=== PATIENT | female | born 1995 | race Caucasian/White ===

== ENCOUNTER 2017-11-10 11:43 | Emergency (ER) | payer OTHER ==
[2017-11-10 13:40] LABS: Absolute Lymphocytes (CBC) 1.8 K/uL (0.7-4.9); Absolute Monocytes 0.5 K/uL (0.1-1.3); Absolute Neutrophil 4.7 K/uL (1.8-8.0); Basophils % 0.8 % (0-1.3); Hematocrit 38.1 % (36.0-45.0); Lymphocytes % 25.2 % (15.3-44.8); MCH 28.2 pg (27.0-35.0); MPV 9.1 fL (7.6-11.3); Monocytes % 6.4 % (3.3-12.3); RBC Red Blood Cell Count 4.43 M/uL (3.86-4.86)
[2017-11-10] MEDS ORDERED: ONDANSETRON 4 MG/2 ML VIAL ONE (13:48)
[2017-11-10] MEDS ORDERED: MORPHINE 4 MG/ML SYR ONE (13:48)
[2017-11-10 14:14] LABS: Albumin 4.3 g/dL (3.4-5.0); Bilirubin Direct 0.1 mg/dL (0-0.2); Bilirubin Total 0.7 mg/dL (0.2-1.0); Potassium 3.8 mmol/L (3.5-5.1); Protein, Total 8.4 g/dL (6.4-8.2)
[2017-11-10 14:35] LABS: Urine Blood 3+ (NEG); Urine Glucose NEGATIVE (NEG); Urine Protein NEGATIVE (NEG); Urine Specific Gravity 1.015 (1.005-1.030)
[2017-11-10 14:52] LABS: Urine Bacteria <20 /HPF (<20); Urine Culture Reflex Order NOT NEEDED; Urine RBC 20-50 /HPF (NONE SEEN)
--- NOTE | 2017-11-10 15:00 | RAD REPORT ---
EXAM DESCRIPTION: CTAbdomen Pelvis W Contrast - 11/10/2017 2:39 pm CLINICAL HISTORY: Abdominal pain. Right lower abdominal pain, IV ONLY COMPARISON: CT ABD PELVIS W CONTRAST dated 11/26/2011 TECHNIQUE: Biphasic CT imaging of the abdomen and pelvis was performed with 100 ml non-ionic IV cont rast. All CT scans are performed using dose optimization technique as appropriate and may include automated exposure control or mA/KV adjustment according to patient size. FINDINGS: The lung bases are clear. The liver, spleen, pancreas, adrenal glands are within normal limits. Punctate bilateral nephrolithia sis is seen without hydronephrosis. No bowel obstruction, free air, intra-abdominal free fluid or abscess. Moderate stool is present in t he colon. The appendix is normal. No evidence of significant lymphadenopathy. No suspicious bony findings. Trace pelvic free fluid. IMPRESSION: Punctate bilateral nephrolithiasis without hydronephrosis. Moderate fecal retention in the colon.
[2017-11-10] MEDS ORDERED: NA CHLORIDE 0.9% 1,000 ML ONE (15:54)
[2017-11-10] MEDS ORDERED: KETOROLAC 30 MG/ML INJ ONE (16:09)
--- NOTE | 2017-11-10 18:00 | RAD REPORT ---
EXAM DESCRIPTION: US - Pelvis Complete - 11/10/2017 5:47 pm CLINICAL HISTORY: pelvic pain Pelvic pain. COMPARISON: PELVIC COMPLETE dated 06/11/2014 FINDINGS: The uterus is normal in size, shape and echotexture. The uterus measures 7.1 x 4.1 x 3.0 c m. The endometrial stripe measures 10 mm, normal. Both ovaries are normal in size, shape and echotexture. The right ovary measures 3.4 x 2.3 x 2.3 cm. The left ovary measures 2.6 x 2.0 x 1.9 cm. No ovarian or parovarian lesions. No adnexal masses. Normal Doppler blood flow was demonstrated to both ovaries. No significant pelvic ascites. IMPRESSION: Unremarkable study.
--- NOTE | 2017-11-10 18:05 | ER ---
Nurse's Notes [facility] Name: Zen Gabriel Age: 22 yrs Sex: Female : 1995 Arrival Date: 11/10/2017 Time: 11:46 Bed 24 Private MD: Van Romoe Diagnosis: Urinary tract infection, site not specified;Constipation Presentation: 11/10 12:09 Presenting complaint: Patient states: Lower abdominal and pelvic pain 10/10 x 3 days. hb Vomit x 1 yesterday. Transition of care: patient was not received from another setting of care. Onset of symptoms was November 08, 2017. Risk Assessment: Do you want to hurt yourself or someone else? Patient reports no desire to harm self or others. Care prior to arrival: None. 12:09 Method Of Arrival: Wheelchair hb 12:09 Acuity: JASSI 3 hb 12:40 Initial Sepsis Screen: Does the patient meet any 2 criteria? No. Patient's initial ed1 sepsis screen is negative. Does the patient have a suspected source of infection? No. Patient's initial sepsis screen is negative. 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 - Social history:: Smoking status: Patient/guardian denies using tobacco. - Ebola Screening: : No symptoms or risks identified at this time. Screenin:57 Abuse screen: Denies threats or abuse. Denies injuries from another. Nutritional ed1 screening: No deficits noted. Tuberculosis screening: No symptoms or risk factors identified. Fall Risk None identified. Assessment: 12:40 Reassessment: mother came to desk states "she needs to lay down", educated that there tw2 is no beds available at this time and as soon as one becomes available she will be brought back to a room. 12:57 General: Appears uncomfortable, Behavior is calm, cooperative. Pain: Complains of pain ed1 in suprapubic area Pain radiates to back and rectum Pain currently is 10 out of 10 on a pain scale. Quality of pain is described as sharp, shooting, stabbing, Pain began "this morning" Is intermittent. Neuro: Level of Consciousness is awake, alert, obeys commands, Oriented to person, place, time, situation. Cardiovascular: Denies chest pain, Heart tones S1 S2 present. Respiratory: Airway is patent Trachea midline Respiratory effort is even, unlabored, Respiratory pattern is regular, symmetrical, Breath sounds are clear bilaterally. GI: Abdomen is flat, Bowel sounds present X 4 quads. Abd is soft X 4 quads Abdomen is tender to palpation in suprapubic area, right lower quadrant and left lower quadrant Reports lower abdominal pain, cramping, nausea, constipation relieved by Miralax Patient currently denies diarrhea, vomiting. : No signs and/or symptoms were reported regarding the genitourinary system. EENT: No signs and/or symptoms were reported regarding the EENT system. Derm: Skin is intact, is healthy with good turgor, Skin is dry, Skin is normal, Skin temperature is warm. Musculoskeletal: Circulation, motion, and sensation intact. Range of motion: intact in all extremities. 13:00 Reassessment: I agree with previous assessment. hb 14:16 Reassessment: Patient appears in no apparent distress at this time. Patient and/or ed1 family updated on plan of care and expected duration. Pain level reassessed. Patient is alert, oriented x 3, equal unlabored respirations, skin warm/dry/pink. Patient states feeling better. Patient states symptoms have improved. 15:04 Reassessment: Patient appears in no apparent distress at this time. Patient and/or ed1 family updated on plan of care and expected duration. Pain level reassessed. Patient is alert, oriented x 3, equal unlabored respirations, skin warm/dry/pink. Patient states feeling better. Patient states symptoms have improved. 16:09 Reassessment: Patient appears in no apparent distress at this time. Patient and/or ed1 family updated on plan of care and expected duration. Pain level reassessed. Patient is alert, oriented x 3, equal unlabored respirations, skin warm/dry/pink. Pt states "My pain is starting to return.". 17:05 Reassessment: Patient appears in no apparent distress at this time. Patient and/or ed1 family updated on plan of care and expected duration. Pain level reassessed. Patient is alert, oriented x 3, equal unlabored respirations, skin warm/dry/pink. Patient states feeling better. Patient states symptoms have improved. 18:17 Reassessment: Patient appears in no apparent distress at this time. Patient and/or ed1 family updated on plan of care and expected duration. Pain level reassessed. Patient is alert, oriented x 3, equal unlabored respirations, skin warm/dry/pink. Patient states feeling better. Patient states symptoms have improved. Vital Signs: 12:11 BP 101 / 54; Pulse 71; Resp 16; Temp 98.2; Pulse Ox 100% on R/A; Pain 10/10; hb 12:57 BP 116 / 65; Pulse 57; Resp 17; Pulse Ox 99% on R/A; Pain 10/10; ed1 13:45 BP 119 / 83 RA Sitting (auto/pedi); Pulse 54; Resp 18 S; Pain 8/10; jp3 15:04 BP 125 / 56; Pulse 45; Resp 16; Pulse Ox 100% on R/A; Pain 5/10; ed1 16:09 BP 107 / 62; Pulse 96; Resp 18; Pulse Ox 100% on R/A; Pain 6/10; ed1 17:05 BP 102 / 65; Pulse 60; Resp 16; Pulse Ox 100% on R/A; Pain 4/10; ed1 18:17 BP 95 / 58; Pulse 66; Resp 17; Pulse Ox 100% on R/A; Pain 2/10; ed1 ED Course: 11:46 Patient arrived in ED. sb2 11:46 Van Romeo MD is Private Physician. sb2 12:11 Triage completed. hb 12:11 Arm band placed on right wrist. hb 12:51 Soraida Velazquez LVN is Primary Nurse. ed1 12:57 Provider at bedside to see patient. ed1 12:57 Patient has correct armband on for positive identification. Placed in gown. Bed in low ed1 position. Call light in reach. Adult w/ patient. Pulse ox on. NIBP on. Warm blanket given. 12:58 [facility] 12:58 Freddy Heller MD is Attending Physician. [facility] 13:10 Missed attempt(s): 22 gauge in right forearm. Bleeding controlled, band aid applied, jp3 catheter tip intact. 13:20 Initial lab(s) drawn, by me, sent to lab. Inserted saline lock: 22 gauge in left jp3 antecubital area, using aseptic technique. Blood collected. 13:31 Pillow given. jp3 13:45 Urine collected: clean catch specimen, clear, concepcion colored. jp3 14:[address] via stretcher. vm2 14:39 CT completed. Patient tolerated procedure well. Patient moved back from CT. vm2 14:39 CT Abd/Pelvis - W/Contrast In Process Unspecified. EDMS 15:21 Note: PT REFUSED VAG U/S- SPOKE WITH TAN AND HE SAID THEY WOULD PHONE SCREENER HER FLUIDS- hr SPOKE WITH THE PATIENT AND TOLD HER TO TELL THE NURSE WHEN HER BLADDER FELT REALLY FULL. HR. 16:55 Basic Metabolic Panel Sent. rv 17:05 Resting quietly. Awaiting: Ultrasound. ed1 17:45 Ultrasound completed. Patient tolerated well. hr 17:45 Pelvis Complete In Process Unspecified. EDMS 18:04 Rory Ambrose MD is Referral Physician. [facility] 18:17 No provider procedures requiring assistance completed. IV discontinued, intact, ed1 bleeding controlled, No redness/swelling at site. Pressure dressing applied. Administered Medications: 13:50 Drug: morphine 4 mg Route: IVP; Site: left antecubital; la1 17:06 Follow up: Response: No adverse reaction; Pain is decreased ed1 13:50 Drug: Zofran 4 mg Route: IVP; Site: left antecubital; la1 17:06 Follow up: Response: No adverse reaction; Nausea is decreased ed1 15:56 Drug: NS 0.9% 1000 ml Route: IV; Rate: 1 bolus; Site: left antecubital; ed1 18:18 Follow up: IV Status: Completed infusion; IV Intake: 1000ml ed1 16:07 Drug: TORadol 30 mg Route: IVP; Site: left antecubital; hb 17:06 Follow up: Response: No adverse reaction; Pain is decreased ed1 Intake: 18:18 IV: 1000ml; Total: 1000ml. ed1 Outcome: 18:04 Discharge ordered by . jmm 18:17 Discharged to home ambulatory, with family. ed1 18:17 Condition: good 18:17 Discharge instructions given to patient, Instructed on discharge instructions, follow up and referral plans. medication usage, Demonstrated understanding of instructions, follow-up care, medications, Prescriptions given X 2. 18:19 Patient left the ED. ed1 Signatures: Dispatcher [employer] EDMS Tan Kelly PA PA jmm Rod, Haley hr Riggs, Soraida, ACCOUNTS PAYABLE MANAGER ACCOUNTS PAYABLE MANAGER ed1 Lalo Low RN RN la1 Galina Viveros, RN RN Chapis Boucher RN RN 2 Brittany Schilling 2 Ginny Whitlock 2 Bentley Bar, RN RN rv Mango Reilly jp3
--- NOTE | 2017-11-10 18:05 | EDPHYS ---
Physician Documentation [facility] Name: Zen Gabriel Age: 22 yrs Sex: Female : 1995 Arrival Date: 11/10/2017 Time: 11:46 Bed 24 Private MD: Van Romeo ED Physician Freddy Heller HPI: 11/10 13:07 This 22 yrs old Female presents to ER via Wheelchair [facility] of [facility] Ab[facility]. 13:07 The patient presents with abdominal pain. Onset: The symptoms/episode began/occurred [facility] gradually, 2 day(s) ago. The symptoms radiate to suprapubic area. Associated signs and symptoms: Pertinent positives: vomiting. 13:07 This is a 22 year old female with a history of ovarian cysts, asthma that [facility] with lower abdominal and pelvic pain. Patient denies vaginal bleeding or discharge. Patient states she is constipated and has had painful bowel movements. Patient states having an episodes of vomiting today. Patient states that symptoms are worse on the right. . 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 - Social history:: Smoking status: Patient/guardian denies using tobacco. - Ebola Screening: : No symptoms or risks identified at this time. ROS: 13:07 Constitutional: Negative for fever, chills, and weight loss, Cardiovascular: Negative [facility] for chest pain, palpitations, and edema, Respiratory: Negative for shortness of breath, cough, wheezing, and pleuritic chest pain. 13:07 Abdomen/GI: Positive for abdominal pain, vomiting, constipation. 13:07 : Positive for pelvic pain. 13:07 All other systems are negative. Exam: 13:07 Head/Face: atraumatic. Chest/axilla: Normal chest wall appearance and motion. [facility] Cardiovascular: Regular rate and rhythm. No edema appreciated Respiratory: Normal respirations, no respiratory distress appreciated 13:07 Constitutional: The patient appears alert, awake, uncomfortable. 13:07 Abdomen/GI: Inspection: abdomen appears normal, Bowel sounds: normal, Palpation: soft, mild abdominal tenderness, in the right lower quadrant. 13:07 Abdomen/GI: Palpation: soft, mild abdominal tenderness. 13:07 Back: ROM is normal. 13:07 Musculoskeletal/extremity: ROM: intact in all extremities. 13:07 Skin: Appearance: Color: normal in color. 13:07 Neuro: Orientation: is normal, Mentation: is normal, Memory: is normal. 13:07 Psych: Behavior/mood is pleasant, cooperative. Vital Signs: 12:11 BP 101 / 54; Pulse 71; Resp 16; Temp 98.2; Pulse Ox 100% on R/A; Pain 10/10; hb 12:57 BP 116 / 65; Pulse 57; Resp 17; Pulse Ox 99% on R/A; Pain 10/10; ed1 13:45 BP 119 / 83 RA Sitting (auto/pedi); Pulse 54; Resp 18 S; Pain 8/10; jp3 15:04 BP 125 / 56; Pulse 45; Resp 16; Pulse Ox 100% on R/A; Pain 5/10; ed1 16:09 BP 107 / 62; Pulse 96; Resp 18; Pulse Ox 100% on R/A; Pain 6/10; ed1 17:05 BP 102 / 65; Pulse 60; Resp 16; Pulse Ox 100% on R/A; Pain 4/10; ed1 18:17 BP 95 / 58; Pulse 66; Resp 17; Pulse Ox 100% on R/A; Pain 2/10; ed1 MDM: 13:05 Patient medically screened. [facility] 17:51 Data reviewed: vital signs, nurses notes. Counseling: I had a detailed discussion with best the patient and/or guardian regarding: the historical points, exam findings, and any diagnostic results supporting the discharge/admit diagnosis, the need for outpatient follow up, to return to the emergency department if symptoms worsen or persist or if there are any questions or concerns that arise at home. 11/10 13:06 Order name: Amylase, Serum; Complete Time: 14:34 [facility] 11/10 13:06 Order name: Basic Metabolic Panel [facility] 11/10 13:06 Order name: CBC with Diff; Complete Time: 13:43 [facility] 11/10 13:06 Order name: Creatinine for Radiology; Complete Time: 14:02 [facility] 11/10 13:06 Order name: Hepatic Function; Complete Time: 14:34 [facility] 11/10 13:06 Order name: Lipase; Complete Time: 14:34 [facility] 11/10 13:06 Order name: Urine Microscopic Only; Complete Time: 15:02 [facility] 11/10 13:06 Order name: CT Abd/Pelvis - W/Contrast; Complete Time: 15:02 [facility] 11/10 13:07 Order name: Basic Metabolic Panel; Complete Time: 14:34 [facility] 11/10 14:18 Order name: Urine Dipstick--Ancillary (enter results); Complete Time: 14:38 bd 11/10 14:18 Order name: Urine --Ancillary (enter results); Complete Time: 14:38 11/10 16:43 Order name: Pelvis Complete; Complete Time: 18:03 [facility] 11/10 13:06 Order name: Urine Test (obtain specimen); Complete Time: 13:50 [facility] 11/10 13:06 Order name: IV Saline Lock; Complete Time: 13:44 [facility] 11/10 13:06 Order name: Labs collected and sent; Complete Time: 13:44 [facility] 11/10 13:06 Order name: Urine Dipstick-Ancillary (obtain specimen); Complete Time: 13:50 [facility] Administered Medications: 13:50 Drug: morphine 4 mg Route: IVP; Site: left antecubital; la1 17:06 Follow up: Response: No adverse reaction; Pain is decreased ed1 13:50 Drug: Zofran 4 mg Route: IVP; Site: left antecubital; la1 17:06 Follow up: Response: No adverse reaction; Nausea is decreased ed1 15:56 Drug: NS 0.9% 1000 ml Route: IV; Rate: 1 bolus; Site: left antecubital; ed1 18:18 Follow up: IV Status: Completed infusion; IV Intake: 1000ml ed1 16:07 Drug: TORadol 30 mg Route: IVP; Site: left antecubital; hb 17:06 Follow up: Response: No adverse reaction; Pain is decreased ed1 Disposition: 11/10/17 18:04 Discharged to Home. Impression: Urinary tract infection, site not specified, Constipation. - Condition is Stable. - Discharge Instructions: Urinary Tract Infection, Adult. - Prescriptions for Cephalexin 500 mg Oral Capsule - take 1 capsule by ORAL route every 12 hours for 10 days; 20 capsule. Colace 100 mg Oral Tablet - take 1 tablet by ORAL route every 12 hours; 14 tablet. - Medication Reconciliation Form, Thank You Letter, Antibiotic Education, Prescription Opioid Use form. - Follow up: Rory Ambrose MD; When: As needed; Reason: Recheck today's complaints, Continuance of care, Re-evaluation by your physician. Addendum: 11/12/2017 18:45 Co-signature as Attending Physician, Freddy Heller MD. g s Signatures: Dispatcher [employer] EDAK Gabriel Kelly PA PA raym Soraida Velazquez, DOCTOR OF AUDIOLOGY DOCTOR OF AUDIOLOGY ed1 Lalo Low RN RN la1 Galina Viveros RN RN hb Freddy Heller MD MD Corrections: (The following items were deleted from the chart) 11/10 15:14 15:03 Pelvis Complete+US.RAD.BRZ ordered. [facility] EDAK 16:43 15:14 Transvaginal Study Probe ordered. [facility] EDMS 18:19 18:04 11/10/2017 18:04 Discharged to Home. Impression: Urinary tract infection, site ed1 not specified; Constipation. Condition is Stable. Forms are Medication Reconciliation Form, Thank You Letter, Antibiotic Education, Prescription Opioid Use. Follow up: Rory Ambrose; When: As needed; Reason: Recheck today's complaints, Continuance of care, Re-evaluation by your physician. best
[2017-11-10 18:27] VITALS: TEMP 98.2
[2017-11-10 18:30] VITALS: O2SAT 100
[2017-11-10 18:34] VITALS: BP 95/58
== END 2017-11-10 18:19 | disposition home or self-care (01) ==
LOC: ER 11:43
DX: N39.0 Urinary tract infection, site not specified (principal); K59.00 Constipation, unspecified; J45.909 Unspecified asthma, uncomplicated; Z88.8 Allergy status to other drugs, medicaments and biological substances
CPT/HCPCS: 36415; 74177; 76856; 80048; 80076; 81003; 81015; 81025; 82150; 83690; 85025; 96361; 96374; 96375; 99284; J2405; J7030; Q9967

== ENCOUNTER 2018-07-16 06:47 | Emergency (ER) | payer OTHER ==
[2018-07-16] MEDS ORDERED: IBUPROFEN 400 MG TAB ONE (07:39)
[2018-07-16] MEDS ORDERED: ONDANSETRON 4 MG (ODT) TAB ONE (07:39)
--- NOTE | 2018-07-16 07:57 | EDPHYS ---
Physician Documentation [facility] Name: Zen Gabriel Age: 22 yrs Sex: Female : 1995 Arrival Date: 07/16/2018 Time: 06:50 Bed 16 Private MD: Van Romeo ED Physician Estuardo Gupta HPI: 07/16 07:20 This 22 yrs old Female presents to ER via Ambulatory with complaints of Sore cp Throat, Fever, Headache. 07:20 The patient presents with sore throat. cp 07:20 The patient describes throat pain as constant. Onset: The symptoms/episode cp began/occurred 2 day(s) ago. Severity of symptoms: in the emergency department the symptoms are unchanged, despite home interventions. Modifying factors: the symptoms are aggravated by swallowing. Associated signs and symptoms: Pertinent positives: fever, headache, Pertinent negatives cough, diarrhea, dysphagia, vomiting. 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 - Social history:: Smoking status: Patient/guardian denies using tobacco. - Ebola Screening: : No symptoms or risks identified at this time. ROS: 07:25 Constitutional: Negative for body aches, chills, fever, poor PO intake. cp 07:25 Eyes: Negative for injury, pain, redness, and discharge. cp 07:25 ENT: Positive for sore throat, Negative for drainage from ear(s), ear pain, difficulty swallowing, difficulty handling secretions. 07:25 Neck: Negative for pain with movement, pain at rest, stiffness. 07:25 Respiratory: Negative for cough, wheezing. 07:25 Abdomen/GI: Positive for nausea, Negative for vomiting, diarrhea, constipation. 07:25 Skin: Negative for rash. 07:25 Neuro: Positive for headache, Negative for altered mental status, weakness. 07:25 All other systems are negative. Exam: 07:30 Constitutional: The patient appears in no acute distress, alert, awake, non-toxic, well cp developed, well nourished. 07:30 Head/Face: Normocephalic, atraumatic. cp 07:30 Eyes: Periorbital structures: appear normal, Conjunctiva: normal, no exudate, no cp injection, Lids and lashes: appear normal, bilaterally. 07:30 ENT: External ear(s): are unremarkable, Ear canal(s): are normal, clear, TM's: are normal, no evidence of bulging, no erythema, Nose: is normal, Mouth: Lips: moist, Oral mucosa: moist, Posterior pharynx: Airway: no evidence of obstruction, patent, Tonsils: with erythema, with exudate, mild enlargement, Uvula: midline, erythema, that is moderate, Voice: is hoarse. 07:30 Neck: ROM/movement: is normal, is supple, no range of motions limitations, no meningismus, no nuchal rigidity. 07:30 Chest/axilla: Inspection: normal, Palpation: is normal, no crepitus, no tenderness. 07:30 Cardiovascular: Rate: normal, Rhythm: regular. 07:30 Respiratory: the patient does not display signs of respiratory distress, Respirations: normal, no use of accessory muscles, no retractions, no splinting, no tachypnea, labored breathing, is not present, Breath sounds: are clear throughout, no decreased breath sounds, no stridor, no wheezing. 07:30 Abdomen/GI: Inspection: abdomen appears normal, Palpation: abdomen is soft and non-tender, in all quadrants. 07:30 Neuro: Orientation: to person, place \T\ time. Mentation: is normal. Vital Signs: 07:10 BP 112 / 70; Pulse 74; Resp 16; Temp 98.4; Pulse Ox 98% ; Pain 10/10; hb 08:00 BP 115 / 71; Pulse 74; Resp 15; Pulse Ox 100% on R/A; rb1 08:09 BP 109 / 63; Pulse 67; Resp 15; Pulse Ox 99% ; rb1 MDM: 07:08 Patient medically screened. cp 07:30 Differential diagnosis: epiglottitis, group A strep tonsillitis, el's angina, cp mononucleosis, peritonsillar abscess retropharyngeal abcess tonsillitis, uvulitis, viral syndrome. 07:55 Data reviewed: vital signs, nurses notes, lab test result(s). cp 07:55 Counseling: I had a detailed discussion with the patient and/or guardian regarding: the cp historical points, exam findings, and any diagnostic results supporting the discharge/admit diagnosis, lab results, to return to the emergency department if symptoms worsen or persist or if there are any questions or concerns that arise at home. 07:55 Response to treatment: the patient's symptoms have mildly improved after treatment, and cp as a result, I will discharge patient. 07/16 07:18 Order name: Strep cp 07/16 07:44 Order name: Throat Culture EDAR Administered Medications: 07:31 Drug: Ibuprofen 800 mg Route: PO; rb1 08:00 Follow up: Response: No adverse reaction; Pain is decreased; pain 11/04 rb1 07:32 Drug: Zofran 4 mg Route: PO; rb1 08:00 Follow up: Response: No adverse reaction; Nausea is decreased rb1 Disposition: 07/17 08:00 Co-signature as Attending Physician, Estuardo Gupta MD I agree with the assessment and [facility] plan of care. Disposition: 07/16/18 07:56 Discharged to Home. Impression: Acute tonsillitis, unspecified. - Condition is Stable. - Discharge Instructions: Tonsillitis. - Prescriptions for Ibuprofen 600 mg Oral Tablet - take 1 tablet by ORAL route every 6 hours As needed take with food; 30 tablet. Keflex 500 mg Oral Capsule - take 1 capsule by ORAL route every 8 hours for 10 days; 30 capsule. - Medication Reconciliation Form, Thank You Letter, Antibiotic Education, Prescription Opioid Use, School release form form. - Follow up: Private Physician; When: 48 Hours; Reason: Recheck today's complaints. - Problem is new. - Symptoms have improved. Signatures: Dispatcher [employer] EDAR Estuardo Gupta MD MD cha Page, Corey, PA PA cp Barber, Rebecca, RN RN rb1 Galina Viveros RN RN Corrections: (The following items were deleted from the chart) 07/16 08:09 07:56 07/16/2018 07:56 Discharged to Home. Impression: Acute tonsillitis, unspecified. rb1 Condition is Stable. Forms are Medication Reconciliation Form, Thank You Letter, Antibiotic Education, Prescription Opioid Use. Follow up: Private Physician; When: 48 Hours; Reason: Recheck today's complaints. Problem is new. Symptoms have improved. cp
--- NOTE | 2018-07-16 07:57 | ER ---
Nurse's Notes [facility] Name: Zen Gabriel Age: 22 yrs Sex: Female : 1995 Arrival Date: 07/16/2018 Time: 06:50 Bed 16 Private MD: Van Romeo Diagnosis: Acute tonsillitis, unspecified Presentation: 07/16 07:11 Presenting complaint: Sore throat, headache, nausea, and fever x 2-3 days. Transition hb of care: patient was not received from another setting of care. Onset of symptoms was July 16, 2018. Risk Assessment: Do you want to hurt yourself or someone else? Patient reports no desire to harm self or others. Initial Sepsis Screen: Does the patient meet any 2 criteria? No. Patient's initial sepsis screen is negative. Does the patient have a suspected source of infection? No. Patient's initial sepsis screen is negative. Care prior to arrival: Medication(s) given: Tylenol, at midnight. 07:11 Method Of Arrival: Ambulatory hb 07:11 Acuity: JASSI 4 hb PHD INTERN: 07:10 LMP N/A - Depo-provera hb Historical: - Allergies: 07:12 meperidine HCl (Vomiting); hb - Home Meds: 07:12 ProAir HFA inhalation [Active]; Strattera Oral [Active]; Trilogy inhaler [Active]; hb - PMHx: 07:12 Asthma; Ovarian cysts; hb - Immunization history:: Adult Immunizations up to date. - Social history:: Smoking status: Patient/guardian denies using tobacco. - Ebola Screening: : No symptoms or risks identified at this time. Screenin:07 Abuse screen: Denies threats or abuse. Nutritional screening: No deficits noted. rb1 Tuberculosis screening: No symptoms or risk factors identified. Fall Risk None identified. Assessment: 07:07 General: Appears in no apparent distress. comfortable, slender, Behavior is calm, rb1 cooperative, Reports fever for. Pain: Complains of pain in sore throat Pain currently is 8 out of 10 on a pain scale. Pain began 2-3 days ago. Neuro: Level of Consciousness is awake, alert, obeys commands, Oriented to person, place, time, situation. Neuro: Reports headache. Cardiovascular: Capillary refill < 3 seconds is brisk in bilateral fingers. Respiratory: Airway is patent Respiratory effort is even, unlabored, Respiratory pattern is regular, symmetrical, Breath sounds are clear bilaterally. GI: Reports nausea. : No signs and/or symptoms were reported regarding the genitourinary system. EENT: Throat is reddened. Derm: Skin is pink, warm \T\ dry. Musculoskeletal: Range of motion: intact in all extremities. 08:00 Reassessment: Patient appears in no apparent distress at this time. No changes from rb1 previously documented assessment. Mother at bedside. Vital Signs: 07:10 BP 112 / 70; Pulse 74; Resp 16; Temp 98.4; Pulse Ox 98% ; Pain 10/10; hb 08:00 BP 115 / 71; Pulse 74; Resp 15; Pulse Ox 100% on R/A; rb1 08:09 BP 109 / 63; Pulse 67; Resp 15; Pulse Ox 99% ; rb1 ED Course: 06:50 Patient arrived in ED. es 06:50 Van Romeo MD is Private Physician. es 07:07 Patient has correct armband on for positive identification. Bed in low position. Call rb1 light in reach. Side rails up X 1. Pulse ox on. NIBP on. 07:08 Estuardo Galloway PA is PHCP. cp 07:08 Freddy Heller MD is Attending Physician. cp 07:09 Estuardo Gupta MD is Attending Physician. cp 07:12 Triage completed. hb 07:12 Arm band placed on. hb 07:25 Marta Joyner, RN is Primary Nurse. rb1 07:25 Strep Sent. rb1 08:09 No provider procedures requiring assistance completed. Patient did not have IV access rb1 during this emergency room visit. Administered Medications: 07:31 Drug: Ibuprofen 800 mg Route: PO; rb1 08:00 Follow up: Response: No adverse reaction; Pain is decreased; pain 8/10 rb1 07:32 Drug: Zofran 4 mg Route: PO; rb1 08:00 Follow up: Response: No adverse reaction; Nausea is decreased rb1 Intake: Outcome: 07:56 Discharge ordered by . cp 08:09 Patient left the ED. rb1 08:09 Discharged to home ambulatory, with family. rb1 08:09 Condition: stable 08:09 Discharge instructions given to patient, Instructed on discharge instructions, follow up and referral plans. medication usage, Demonstrated understanding of instructions, follow-up care, medications, Prescriptions given X 2. Signatures: Petra Patel Corey, PA PA cp Barber, Rebecca RN RN [facility] Galina Viveros RN RN
[2018-07-16 08:25] VITALS: BP 112/70; TEMP 98.4; O2SAT 98
== END 2018-07-16 08:09 | disposition home or self-care (01) ==
LOC: ER 06:47
DX: J03.90 Acute tonsillitis, unspecified (principal); J45.909 Unspecified asthma, uncomplicated
CPT/HCPCS: 87070; 87081; 99284

== ENCOUNTER 2020-04-17 14:56 | Emergency (ER) | payer BC, OTHER, SELFPAY ==
--- OUTSIDE RECORDS SUMMARY | 2020-04-17 14:58 | XMS REPORT | Clinical Summary ---
:1995 Author Organization [facility] Address [address] [place] [address] Care Team Providers Name Role Phone MD Agueda Primary Care Provider Allergies Active Allergy Reactions Severity Noted Date Comments Meperidine GI Intolerance 02/11/2020 Medications Medication Sig Dispensed Refills Start Date End Date Status atomoxetine 0 11/29/2019 Active (STRATTERA) 40 MG capsule FLUoxetine (PROzac) 0 01/02/2020 Active 20 MG capsule meloxicam (Mobic) 15 Take 1 tablet 30 tablet 0 02/11/2020 1208/2019 mg tablet (15 mg total) by mouth daily for 30 days. Active Problems Problem Noted Date Bilateral snapping hips 02/11/2020 Encounters Date Type Specialty Care Team Description 02/11/2020 Office Visit Orthopedic Surgery Art Pacheco MD Parvez ateral snapping hips (Primary Dx) 02/11/2020 Travel 02/08/2020 Travel after 04/17/2019 Social History Tobacco Use Types Packs/Day Years Used Date Never Assessed Sex Assigned at Date Recorded Not on file Job Start Date Occupation Industry Not on file Not on file Not on file Last Filed Vital Signs Vital Sign Reading Time Taken Comments Blood Pressure - - Pulse - - Temperature - - Respiratory Rate - - Oxygen Saturation - - Inhaled Oxygen Concentration - - Weight 52.6 kg (116 lb) 02/11/2020 1:36 PM [employer] Height 156.2 cm (5' 1.5") 02/11/2020 1:36 PM [employer] Body Mass Index 21.56 02/11/2020 1:36 PM [employer] Plan of Treatment Health Maintenance Due Date Last Done Comments CHLAMYDIA SCREENING 2011 COVID-19 VACCINE (1 of 2) 2011 CERVICAL CANCER SCREENING 08/23/2016 INFLUENZA VACCINE 10/27/2019 Procedures Procedure Name Priority Date/Time Associated Diagnosis Comme nts XR HIPS BILATERAL Routine 02/11/2020 1:46 PM Bilateral hip pa in Results for this AP LATERAL W AP [employer] procedure ar e in PELVIS the results section. after 04/17/2019 Results XR Hips Bilateral Ap Lateral W Ap Pelvis (02/11/2020 1:46 PM [employer]) Specimen Narrative Performed At This result has an attachment that is no t available. AP pelvis and lateral x-ray of both hips reveal no significant bony [facility] abnormalities. There may be some dysplasia in both h ips. Performing Organization Address City/State/ZIP Code Phon e Number [facility] [address] [place] [address] after 04/17/2019 [phone] [id number] (Work) Advance Directives For more information, please contact: [phone] Type Date Recorded Patient Boom Supervisor Explanati on Advance Directives, Living Will and Medical Power of Carbon Accountant
--- OUTSIDE RECORDS SUMMARY | 2020-04-17 14:59 | XMS REPORT | Continuity of Care Document ---
:1995 Author Organization [facility] t Address [address] [place] [address] Care Team Providers Name Role Phone Agueda BROWER Primary Care Physician Kristy Ambrocio MD Attending Clinician Payers Payer Name Policy Type Policy Effective Date Expiration Date Sour ce Number BCBSTRS [id number] 2019 [place] [employer] 00:00:00 [employer] PR[employer] /HMO BLUE ESSENTIALSxxxxxx [id number] 2019-P resentHMO Problems Condition Condition Condition Status Onset Resolution Last Treating Co mments Source Name Details Category Date Date Treatment Clinician Date Bilateral Bilateral Disease Active 2019-03 [place] kv[place]n snapping snapping 1-16 [facility] i hips hips 00:00: st 00 Allergies, Adverse Reactions, Alerts Allergy Allergy Status Severity Reaction(s) Onset Inactive Treating Comm ents Source Name Type Date Date Clinician Meperidi Propensi Active GI 2019-03 [place] ty to Intolerance 1-16 Metho di adverse 00:00: st reaction 00 s to drug Social History Social Habit Start Date Stop Date Quantity Comments Source Sex Assigned At [facility] Medications Ordered Filled Start Stop Current Ordering Indication Dosage Frequency Signature Comments Components Source Medication Medication Date Date Medication? Clinician (SIG) Name Name meloxicam 2019-03 2020- No 15mg QD Take 1 [place] (Mobic) 15 1-16 12-16 tablet (15 Me thodi mg tablet 00:00: 23:59 mg total) st 00 :00 by mouth daily for 30 days. FLUoxetine 2019-03 Yes [place] (PROzac) 20 0-07 [facility] MG capsule 00:00: st 00 atomoxetine Yes [place] (STRATTERA) 9-03 [facility] 40 MG 00:00: st capsule 00 Vital Signs Vital Name Observation Time Observation Value Comments Source Body height 2020-02-11 13:36:00 156.2 cm Sabino Knight Body weight 2020-02-11 13:36:00 52.617 kg Sabino Knight BMI 2020-02-11 13:36:00 21.56 kg/m2 Sabino Knight Procedures Procedure Date / Time Performed Performing Clinician Sourc e XR HIPS BILATERAL AP 2020-02-11 13:46:41 Art Ambrocio LATERAL W AP PELVIS Plan of Care Planned Activity Planned Date Details Comments Source Future Scheduled 2019-10-27 INFLUENZA VACCINE [place] [facility] 00:00:00 [code = INFLUENZA VACCINE] Future Scheduled 2016-08-23 Screening for Sabino [facility] Test 00:00:00 malignant neoplasm of cervix (procedure) [code = 619670117] Future Scheduled 2011 CHLAMYDIA SCREENING [place] [facility] 00:00:00 [code = CHLAMYDIA SCREENING] Future Scheduled 2011 COVID-19 VACCINE (1 [place] [facility] Test 00:00:00 of 2) [code = COVID-19 VACCINE (1 of 2)] Encounters Start End Encounter Admission Attending Care Care Encounter Source Date/Time Date/Time Type Type Clinicians Facility Department ID 2020-02-11 2020-02-11 Outpatient ART AMBROCIO [facility] [id number] [place] 00:00:00 00:00:[address] 2020-02-11 2020-02-11 Outpatient ART AMBROCIO [facility] [id number] [place] 00:00:00 00:00:[address] Results This patient has no known results.
[2020-04-17 19:01] LABS: Basophils % 0.8 % (0-1.3); Hematocrit 40.2 % (36.0-45.0); Lymphocytes % 39.2 % (15.3-44.8); MPV 9.1 fL (7.6-11.3); RBC Red Blood Cell Count 4.62 M/uL (3.86-4.86)
[2020-04-17 19:11] LABS: ALT/SGPT 21 U/L (12-78); AST/SGOT 18 U/L (15-37); Albumin 4.4 g/dL (3.4-5.0); Alkaline Phosphatase 70 U/L (45-117); BUN Blood Urea Nitrogen 10 mg/dL (7-18); Bicarbonate 27 mmol/L (21-32); Bilirubin Direct < 0.1 mg/dL (0-0.2); Bilirubin Total 0.3 mg/dL (0.2-1.0); Glucose Level 89 mg/dL (74-106); Lipase 224 U/L (73-393); Potassium 3.8 mmol/L (3.5-5.1); Protein, Total 7.7 g/dL (6.4-8.2); Sodium Level 143 mmol/L (136-145)
[2020-04-17] MEDS ORDERED: MORPHINE 4 MG/ML SYR ONE (19:30)
[2020-04-17] MEDS ORDERED: ONDANSETRON 4 MG/2 ML VIAL ONE (19:30)
[2020-04-17 20:26] LABS: Urine Blood NEGATIVE (NEG); Urine Glucose NEGATIVE (NEG); Urine Protein NEGATIVE (NEG); Urine Specific Gravity 1.025 (1.005-1.030)
--- NOTE | 2020-04-17 20:34 | RAD REPORT ---
EXAM DESCRIPTION: CTAbdomen Pelvis W Contrast - 04/17/2020 8:21 pm CLINICAL HISTORY: Abdominal pain. ABD PAIN COMPARISON: Abdomen Pelvis W Contrast dated 11/10/2017 TECHNIQUE: Biphasic CT imaging of the abdomen and pelvis was performed with 100 ml non-ionic IV cont rast. All CT scans are performed using dose optimization technique as appropriate and may include automated exposure control or mA/KV adjustment according to patient size. FINDINGS: The lung bases are clear. The liver, spleen, pancreas, adrenal glands and kidneys are within normal limits. No bowel obstruction, free air, free fluid or abscess. The appendix is not identified as a discrete structure, however, no secondary findings of appendicitis are identified. No evidence of significan t lymphadenopathy. No suspicious bony findings. IMPRESSION: No acute intra-abdominal or pelvic finding.
--- NOTE | 2020-04-17 21:15 | ER ---
Nurse's Notes [facility] Name: Zen Gabriel Age: 24 yrs Sex: Female : 1995 Arrival Date: 04/17/2020 Time: 15:03 Bed 7 Private MD: Van Romeo Diagnosis: Abdominal tenderness Presentation: 04/17 15:13 Chief complaint: Patient states: Right sided abd pain for 1 month. Pain more severe for ll1 2-3 days. + nausea off/on for 1 week. Diarrhea for 1 week. Coronavirus screen: Client denies travel out of the [place] in the last 14 days. At this time, the client does not indicate any symptoms associated with coronavirus-19. Ebola Screen: Patient denies travel to an Ebola-affected area in the 21 days before illness onset. Initial Sepsis Screen: Does the patient meet any 2 criteria? No. Patient's initial sepsis screen is negative. Does the patient have a suspected source of infection? Yes: Acute abdominal pain. Risk Assessment: Do you want to hurt yourself or someone else? Patient reports no desire to harm self or others. Onset of symptoms was March 16, 2020. 15:13 Method Of Arrival: Ambulatory ll1 15:13 Acuity: JASSI 3 ll1 Historical: - Allergies: 15:15 meperidine HCl (Vomiting); ll1 - PMHx: 15:15 Asthma; Ovarian cysts; Endometrosis; ll1 - PSHx: 15:15 None; ll1 - Immunization history:: Flu vaccine is up to date. - Social history:: Smoking status: Patient denies any tobacco usage or history of. - Family history:: not pertinent. Screenin:27 Abuse screen: Denies threats or abuse. Nutritional screening: No deficits noted. ea Tuberculosis screening: No symptoms or risk factors identified. Fall Risk IV access (20 points). Assessment: 19:27 General: Appears uncomfortable, Behavior is appropriate for age. Pain: Complains of ea pain in right lower quadrant. Neuro: Level of Consciousness is awake, alert, obeys commands, Oriented to person, place, time. Cardiovascular: Patient's skin is warm and dry. Respiratory: Airway is patent Respiratory effort is even, unlabored, Respiratory pattern is regular, symmetrical. GI: Bowel sounds present X 4 quads. Abd is soft and non tender X 4 quads. Derm: Skin is pink, warm \T\ dry. 20:15 Reassessment: Patient and/or family updated on plan of care and expected duration. Pain ea level reassessed. Patient is alert, oriented x 3, equal unlabored respirations, skin warm/dry/pink. Pt taken to CT. 20:30 Reassessment: Patient and/or family updated on plan of care and expected duration. Pain ea level reassessed. Patient is alert, oriented x 3, equal unlabored respirations, skin warm/dry/pink. Returned from CT. 21:23 Reassessment: Patient denies pain at this time. Patient states feeling better. Patient mg2 states symptoms have improved. Vital Signs: 15:13 BP 123 / 72; Pulse 69; Resp 16; Temp 98.9; Pulse Ox 100% ; Weight 51.71 kg; Height 5 ll1 ft. 1 in. (154.94 cm); Pain 8/10; 21:12 BP 110 / 75; Pulse 65; Resp 18; Pulse Ox 99% on R/A; ea 21:23 BP 112 / 78; Pulse 80; Resp 18; Temp 98; Pulse Ox 100% on R/A; Pain 0/10; mg2 15:13 Body Mass Index 21.54 (51.71 kg, 154.94 cm) ll1 ED Course: 15:03 Patient arrived in ED. am4 15:03 Van Romeo MD is Private Physician. am4 15:15 Triage completed. ll1 15:15 Arm band placed on. ll1 17:52 Rayray Washburn MD is Attending Physician. tw4 17:59 Cande Shaver RN is Primary Nurse. ph 18:38 Missed attempt(s): 22 gauge in left forearm. Bleeding controlled, band aid applied, dh3 catheter tip intact. 18:41 Initial lab(s) drawn, by md, sent to lab. Inserted saline lock: 22 gauge in right dh3 antecubital area, using aseptic technique. Blood collected. 19:17 Attending Physician role handed off by Rayray Washburn MD paige 19:17 Estuardo Gupta MD is Attending Physician. paige 19:23 Primary Nurse role handed off by Cande Shaver RN [facility] 19:26 Mary Ann Hester RN is Primary Nurse. ea 19:27 Patient has correct armband on for positive identification. Bed in low position. Call ea light in reach. Side rails up X2. 21:14 Van Romeo MD is Referral Physician. paige 21:14 Ramon Cortés MD is Referral Physician. paige 21:14 No provider procedures requiring assistance completed. mg2 21:23 IV discontinued, intact, bleeding controlled, No redness/swelling at site. Pressure mg2 dressing applied. Administered Medications: 19:21 Drug: morphine 4 mg {Note: rass 0.} Route: IVP; Site: right antecubital; ea 19:21 Drug: Zofran (Ondansetron) 4 mg Route: IVP; Site: right antecubital; ea Outcome: 21:14 Discharge ordered by . paige 21:23 Discharged to home ambulatory. mg2 21:23 Condition: stable 21:23 Discharge instructions given to patient, Instructed on discharge instructions, follow up and referral plans. medication usage, Demonstrated understanding of instructions, follow-up care, medications, Prescriptions given X 3. 21:23 Patient left the ED. mg2 Signatures: Estuardo Gupta MD MD cha Hall, Patricia, RN RN Rashida Toledo 3 Mary Ann Hester RN RN Rayray Medrano MD MD tw4 Yomi Mcguire 2 Tacos Kendrick RN RN mg2 Tejinder Monsalve RN RN 1 Celeste Gleason 4
--- NOTE | 2020-04-17 21:15 | EDPHYS ---
Physician Documentation [facility] Name: Zen Gabriel Age: 24 yrs Sex: Female : 1995 Arrival Date: 04/17/2020 Time: 15:03 Bed 7 Private MD: Van Romeo ED Physician Estuardo Gupta HPI: 04/17 18:42 This 24 yrs old Female presents to ER via Ambulatory with complaints of tw4 Abdominal Pain. 18:42 The patient presents with abdominal pain right lower quadrant. Onset: The tw4 symptoms/episode began/occurred today. Onset: The symptoms/episode began/occurred and became worse 2 day(s) ago. The symptoms do not radiate. Associated signs and symptoms: none. The symptoms are described as sharp. Modifying factors: The symptoms are alleviated by nothing, the symptoms are aggravated by nothing. The patient has not experienced similar symptoms in the past. 19:50 Severity of pain: At its worst the pain was mild in the emergency department the pain paige is unchanged. Historical: - Allergies: 15:15 meperidine HCl (Vomiting); ll1 - PMHx: 15:15 Asthma; Ovarian cysts; Endometrosis; ll1 - PSHx: 15:15 None; ll1 - Immunization history:: Flu vaccine is up to date. - Social history:: Smoking status: Patient denies any tobacco usage or history of. - Family history:: not pertinent. ROS: 18:42 Constitutional: Negative for fever, chills, and weight loss, Eyes: Negative for injury, tw4 pain, redness, and discharge, Cardiovascular: Negative for chest pain, palpitations, and edema, Respiratory: Negative for shortness of breath, cough, wheezing, and pleuritic chest pain, Back: Negative for injury and pain, MS/Extremity: Negative for injury and deformity, Skin: Negative for injury, rash, and discoloration, Neuro: Negative for headache, weakness, numbness, tingling, and seizure. 18:42 Abdomen/GI: Positive for abdominal pain, Negative for nausea and vomiting, nausea, vomiting, and diarrhea, nausea, vomiting, abdominal cramps, abdominal distension, anorexia, dysphagia, hematemesis, black/tarry stool, rectal pain, rectal bleeding, bowel incontinence. Exam: 18:42 Constitutional: This is a well developed, well nourished patient who is awake, alert, tw4 and in no acute distress. Head/Face: Normocephalic, atraumatic. Chest/axilla: Normal chest wall appearance and motion. Nontender with no deformity. No lesions are appreciated. Cardiovascular: Regular rate and rhythm with a normal S1 and S2. No gallops, murmurs, or rubs. Normal PMI, no JVD. No pulse deficits. Respiratory: Lungs have equal breath sounds bilaterally, clear to auscultation and percussion. No rales, rhonchi or wheezes noted. No increased work of breathing, no retractions or nasal flaring. Back: No spinal tenderness. No costovertebral tenderness. Full range of motion. Skin: Warm, dry with normal turgor. Normal color with no rashes, no lesions, and no evidence of cellulitis. MS/ Extremity: Pulses equal, no cyanosis. Neurovascular intact. Full, normal range of motion. 18:42 Abdomen/GI: Inspection: abdomen appears normal, Bowel sounds: normal, Palpation: moderate abdominal tenderness, in the right lower quadrant. Vital Signs: 15:13 BP 123 / 72; Pulse 69; Resp 16; Temp 98.9; Pulse Ox 100% ; Weight 51.71 kg; Height 5 ll1 ft. 1 in. (154.94 cm); Pain 8/10; 21:12 BP 110 / 75; Pulse 65; Resp 18; Pulse Ox 99% on R/A; ea 21:23 BP 112 / 78; Pulse 80; Resp 18; Temp 98; Pulse Ox 100% on R/A; Pain 0/10; mg2 15:13 Body Mass Index 21.54 (51.71 kg, 154.94 cm) ll1 MDM: 17:52 Patient medically screened. tw4 19:23 Patient medically screened. paige 19:52 Differential diagnosis: appendicitis, bowel obstruction, Dysmenorrhea, Ectopic paige , Irritable bowel syndrome, Mesenteric ischemia or infarction, non-specific abd pain, Ovarian Torsion, pancreatitis, Pelvic Inflammatory Disease, Tubal Ovarian Abcess, Ureterolithiasis, urinary tract infection. Data reviewed: vital signs, nurses notes, lab test result(s), radiologic studies, CT scan. Data interpreted: teletypesetter monitor: rate is 69 beats/min, rhythm is regular. Counseling: I had a detailed discussion with the patient and/or guardian regarding: the historical points, exam findings, and any diagnostic results supporting the discharge/admit diagnosis, lab results, radiology results. 04/17 18:08 Order name: Basic Metabolic Panel [facility] 04/17 18:08 Order name: CBC with Diff [facility] 04/17 18:08 Order name: Hepatic Function [facility] 04/17 18:08 Order name: Lipase [facility] 04/17 19:11 Order name: Basic Metabolic Panel; Complete Time: 19:24 [facility] 04/17 19:11 Order name: Liver (Hepatic) Function; Complete Time: 19:24 [facility] 04/17 18:41 Order name: CT Abd/Pelvis - IV Contrast Only [facility] 04/17 19:11 Order name: Lipase; Complete Time: 19:24 [facility] 04/17 19:15 Order name: CBC with Automated Diff; Complete Time: 19:24 [facility] 04/17 20:03 Order name: Urine Dipstick--Ancillary (enter results) [facility] 04/17 20:03 Order name: Urine --Ancillary (enter results) [facility] 04/17 20:26 Order name: Urine --Ancillary; Complete Time: 21:11 [facility] 04/17 20:26 Order name: Urine Dipstick-Ancillary; Complete Time: 21:11 [facility] 04/17 20:36 Order name: CT; Complete Time: 21:11 [facility] 04/17 18:08 Order name: IV Saline Lock; Complete Time: 18:45 4 04/17 18:08 Order name: Labs collected and sent; Complete Time: 18:46 [facility] 04/17 18:08 Order name: Urine Dipstick-Ancillary (obtain specimen); Complete Time: 19:59 [facility] 04/17 18:08 Order name: Urine Test (obtain specimen); Complete Time: 19:59 tw4 Administered Medications: 19:21 Drug: morphine 4 mg {Note: rass 0.} Route: IVP; Site: right antecubital; ea 19:21 Drug: Zofran (Ondansetron) 4 mg Route: IVP; Site: right antecubital; ea Disposition: 04/17/20 21:14 Discharged to Home. Impression: Abdominal tenderness. - Condition is Stable. - Discharge Instructions: Abdominal Pain, Adult, Abdominal Pain, Adult, [id number]. - Prescriptions for Bentyl 20 mg Oral Tablet - take 1 tablet by ORAL route every 6 hours As needed; 20 tablet. Pepcid 20 mg Oral Tablet - take 1 tablet by ORAL route every 12 hours for 10 days; 20 tablet. Zofran 4 mg Oral Tablet - take 1 tablet by ORAL route every 12 hours As needed; 20 tablet. - Medication Reconciliation Form, Thank You Letter, Antibiotic Education, Prescription Opioid Use form. - Follow up: Van Romeo MD; When: 2 - 3 days; Reason: Recheck today's complaints, Continuance of care, Re-evaluation by your physician. Follow up: Ramon Cortés MD; When: 2 - 3 days; Reason: Recheck today's complaints, Re-evaluation by your physician. - Problem is new. - Symptoms have improved. Signatures: Dispatcher [employer] EDMS Estuardo Gupta MD MD cha Antunez, Elena, RENETTA RN Rayray Medrano MD MD tw4 Tacos Kendrick RN RN mg2 Tejinder Monsalve RN RN ll1 Corrections: (The following items were deleted from the chart) 21:23 21:14 04/17/2020 21:14 Discharged to Home. Impression: Abdominal tenderness. Condition mg2 is Stable. Forms are Medication Reconciliation Form, Thank You Letter, Antibiotic Education, Prescription Opioid Use. Follow up: Van Romeo; When: 2 - 3 days; Reason: Recheck today's complaints, Continuance of care, Re-evaluation by your physician. Follow up: Ramon Cortés; When: 2 - 3 days; Reason: Recheck today's complaints, Re-evaluation by your physician. Problem is new. Symptoms have improved. paige
[2020-04-17 21:38] VITALS: BP 112/78; TEMP 98; O2SAT 100
== END 2020-04-17 21:23 | disposition home or self-care (01) ==
LOC: ER 14:56
DX: R10.813 Right lower quadrant abdominal tenderness (principal); Z88.8 Allergy status to other drugs, medicaments and biological substances
CPT/HCPCS: 36415; 74177; 80048; 80076; 81003; 81025; 83690; 85025; 96374; 96375; 99284; J2405; Q9967

== ENCOUNTER 2020-08-25 19:07 | Inpatient (IN) | payer BC ==
--- OUTSIDE RECORDS SUMMARY | 2020-08-25 19:09 | XMS REPORT | Continuity of Care Document ---
:1995 Author Organization [facility] t Address [address] [place] [address] Care Team Providers Name Role Phone Agueda BROWER Primary Care Physician Kristy Ambrocio MD Attending Clinician Payers Payer Name Policy Type Policy Effective Date Expiration Date Sour ce Number BCBSTRS [id number] 2019 Wann ACTIVECARE 00:00:00 Buddhist PRIMARY /HMO BLUE ESSENTIALSxxxxxx [id number] 2019-P resentHMO Problems Condition Condition Condition Status Onset Resolution Last Treating Co mments Source Name Details Category Date Date Treatment Clinician Date Bilateral Bilateral Disease Active 2019-03 Chente ston snapping snapping 1-16 Method i hips hips [...] Date Quantity Comments Source Sex Assigned At [birth year] Wann M ethodist 00:00:00 00:00:00 Medications Ordered Filled Start Stop Current Ordering Indication Dosage Frequency Signature Comments Components Source Medication Medication Date Date Medication? Clinician (SIG) Name Name meloxicam 2019-03 No 15mg QD Take 1 [place] on (Mobic) 15 1-16 12-16 tablet (15 Me thodi mg tablet 00:00: 23:59 mg total) st 00 :00 by mouth daily for 30 days. FLUoxetine 2019-03 Yes Gallo (PROzac) 20 0-07 Methodi MG capsule 00:00: st 00 atomoxetine Yes Evaristostephanie vera (STRATTERA) 9-03 Methodi 40 MG 00:00: st capsule 00 Vital Signs Vital Name Observation Time Observation Value Comments Source Body height 2020-02-11 13:36:00 156.2 cm Sabino Knight Body weight 2020-02-11 13:36:00 52.617 kg Sabino Knight BMI 2020-02-11 13:36:00 21.56 kg/m2 Sabino Knight Procedures Procedure Date / Time Performed Performing Clinician Sourmaxim e XR HIPS BILATERAL AP 2020-02-11 13:46:41 Art Ambrocio LATERAL W AP PELVIS Plan of Care Planned Activity Planned Date Details Comments Source Future Scheduled 2020-10-26 INFLUENZA VACCINE Reid n Buddhist Test 00:00:00 [code = INFLUENZA VACCINE] Future Scheduled 2016-08-23 Screening for Sabino Me thodist Test 00:00:00 malignant neoplasm of cervix (procedure) [code = 563060630] Future Scheduled 2013-08-23 Hepatitis C Gallo Met hodist Test 00:00:00 screening (procedure) [code = 451212982] Future Scheduled 2011 CHLAMYDIA SCREENING Evaristo ton Buddhist Test 00:00:00 [code = CHLAMYDIA SCREENING] Future Scheduled 2007 COVID-19 VACCINE (1) Chente kvngn Buddhist Test 00:00:00 [code = COVID-19 VACCINE (1)] Encounters Start End Encounter Admission Attending Care Care Encounter Source Date/Time Date/Time Type Type Clinicians Facility Department ID 2020-02-11 2020-02-11 Outpatient ART AMBROCIO [facility] [id number] Wann 00:00:00 00:00:[address] 2020-02-11 2020-02-11 Outpatient ART AMBROCIO [facility] [id number] Wann 00:00:00 00:00:[address] Results This patient has no known results.
[2020-08-25] MEDS ORDERED: ACETAMINOPHEN 500 MG TAB ONE (19:41)
[2020-08-25] MEDS ORDERED: ONDANSETRON 4 MG (ODT) TAB ONE (19:47)
[2020-08-25 20:40] LABS: Urine Blood Trace-intact (Negative); Urine Glucose 1+ (Negative); Urine Protein Trace (Negative); Urine Specific Gravity >=1.030 (1.005-1.030); Urine pH 6.5 (5.0-7.0)
[2020-08-25 21:01] LABS: Urine RBC 20-50 /HPF (NONE SEEN)
[2020-08-25 21:02] LABS: Urine Bacteria <20 /HPF (<20)
[2020-08-25] MEDS ORDERED: NA CHLORIDE 0.9% 1,000 ML ONE (21:02)
[2020-08-25 21:07] LABS: Absolute Lymphocytes (CBC) 0.4 K/uL (0.7-4.9); Basophils % 0.3 % (0-1.3); Hematocrit 36.2 % (36.0-45.0); Lymphocytes % 8.5 % (15.3-44.8); MPV 8.7 fL (7.6-11.3); RBC Red Blood Cell Count 4.22 M/uL (3.86-4.86)
[2020-08-25 21:21] LABS: ALT/SGPT 45 U/L (12-78); AST/SGOT 38 U/L (15-37); Albumin 3.9 g/dL (3.4-5.0); Alkaline Phosphatase 65 U/L (45-117); BUN Blood Urea Nitrogen 8 mg/dL (7-18); Bicarbonate 24 mmol/L (21-32); Bilirubin Direct < 0.1 mg/dL (0-0.2); Bilirubin Total 0.3 mg/dL (0.2-1.0); Glucose Level 110 mg/dL (74-106); Lipase 156 U/L (73-393); Potassium 3.9 mmol/L (3.5-5.1); Protein, Total 7.5 g/dL (6.4-8.2); Sodium Level 137 mmol/L (136-145)
[2020-08-25 22:08] LABS: Urine Specific Gravity/Preg >1.030 (1.005-1.030)
[2020-08-25] MEDS ORDERED: ONDANSETRON 4 MG/2 ML VIAL ONE (22:27)
[2020-08-25] MEDS ORDERED: MORPHINE 4 MG/ML SYR ONE (22:27)
--- NOTE | 2020-08-25 23:04 | ER ---
Nurse's Notes [facility] Name: Zen Gabriel Age: 25 yrs Sex: Female : 1995 Arrival Date: 08/25/2020 Time: 19:09 Bed 14 Private MD: Van Romeo Diagnosis: Pyelonephrtitis;Female pelvic inflammatory disease, unspecified Presentation: 08/25 19:14 Chief complaint: Patient states: Vaginal itching and discharge for about 2-3 days. Pt vg1 states pain level is 10/10, states nausea. Pt states pain upon urination. Coronavirus screen: Client denies travel out of the [place] in the last 14 days. Ebola Screen: Patient negative for fever greater than or equal to 101.5 degrees Fahrenheit, and additional compatible Ebola Virus Disease symptoms. Initial Sepsis Screen: Does the patient meet any 2 criteria? Temp <36.0*C (96.8*F)) or > 38.3*C (100.9*F). HR > 90 bpm. Yes Does the patient have a suspected source of infection?. Risk Assessment: Do you want to hurt yourself or someone else? Patient reports no desire to harm self or others. Onset of symptoms was August 22, 2020. 19:14 Method Of Arrival: Wheelchair vg1 19:14 Acuity: JASSI 3 vg1 Triage Assessment: 19:18 General: Appears in no apparent distress. uncomfortable, Behavior is cooperative, vg1 anxious. Pain: Complains of pain in Vagina Pain currently is 10 out of 10 on a pain scale. 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 - Social history:: Smoking status: Patient denies any tobacco usage or history of. Screenin:56 Abuse screen: Denies threats or abuse. Denies injuries from another. Nutritional jm8 screening: No deficits noted. Tuberculosis screening: No symptoms or risk factors identified. Fall Risk None identified. Assessment: 19:22 Reassessment: Received VO from Dr Washburn to administer Tylenol 1 g PO x1. vg1 20:55 General: Appears in no apparent distress. comfortable, Behavior is calm, cooperative, jm8 appropriate for age. Pain: Complains of pain in pelvis Pain currently is 10 out of 10 on a pain scale. Pain began 1 day ago. Aggravated by increased activity, repositioning, urination. Neuro: No deficits noted. Neuro: Level of Consciousness is awake, alert, obeys commands, Oriented to person, place, time. Cardiovascular: No deficits noted. Respiratory: No deficits noted. Respiratory: Airway is patent Trachea midline Respiratory effort is even, unlabored, Respiratory pattern is regular, symmetrical. GI: No deficits noted. No signs and/or symptoms were reported involving the gastrointestinal system. : Reports burning with urination, cramping, vaginal itching, Patient is sexually active. EENT: No deficits noted. No signs and/or symptoms were reported regarding the EENT system. Derm: No deficits noted. No signs and/or symptoms reported regarding the dermatologic system. Musculoskeletal: No deficits noted. No signs and/or symptoms reported regarding the musculoskeletal system. Vital Signs: 19:14 BP 126 / 77; Pulse 120; Resp 18; Temp 102.8(O); Pulse Ox 98% on R/A; Weight 52.16 kg; vg1 Height 5 ft. 1 in. (154.94 cm); Pain 10/10; 22:29 BP 114 / 66; Pulse 101; Resp 16; Temp 98.7(O); Pulse Ox 97% on R/A; 8 08/26 00:30 BP 107 / 66; Pulse 77; Resp 16; Pulse Ox 98% on R/A; [facility] 08/25 19:14 Body Mass Index 21.73 (52.16 kg, 154.94 cm) vg1 ED Course: 08/25 19:09 Patient arrived in ED. es 19:11 Van Romeo MD is Private Physician. es 19:17 Triage completed. vg1 19:18 Arm band placed on. vg1 20:08 Sharath Lilly NP is PHCP. pm1 20:08 Rayray Washburn MD is Attending Physician. pm1 20:46 Inserted saline lock: 20 gauge in right forearm, using aseptic technique. Blood dh4 collected. 20:56 Patient has correct armband on for positive identification. Bed in low position. Call jm8 light in reach. Side rails up X2. 21:54 CT Abd/Pelvis - IV Contrast Only In Process Unspecified. EDMS 22:15 Assist provider with pelvic exam: Set up pelvic tray. Performed by Sharath Lilly NP jm8 Specimens sent to lab. Patient tolerated well. 23:03 Humberto Ashraf PA is Hospitalizing Provider. pm1 23:30 Rolando Adames is Hospitalizing Provider. pm1 08/26 07:25 Jeanne Caldwell RN is Primary Nurse. jl7 16:15 Patient admitted, IV remains in place. vg1 Administered Medications: 08/25 19:24 Drug: Tylenol 1000 mg Route: PO; vg1 20:33 Follow up: Response: No adverse reaction 8 19:27 Drug: Zofran (Ondansetron) 4 mg Route: PO; vg1 20:33 Follow up: Response: No adverse reaction 8 20:42 Drug: NS 0.9% 1000 ml Route: IV; Rate: 1000 ml; Site: right forearm; jm8 22:09 Drug: morphine 4 mg Route: IVP; Site: right forearm; jm8 23:25 Follow up: Response: No adverse reaction; Pain is decreased jm8 22:09 Drug: Zofran (Ondansetron) 4 mg Route: IVP; Site: right forearm; jm8 23:25 Follow up: Response: No adverse reaction jm8 23:24 Drug: cefOXitin 2 grams Route: IVPB; Infused Over: 30 mins; Site: right forearm; jm8 08/26 00:02 Follow up: IV Status: Completed infusion 8 00:32 Follow up: Response: No adverse reaction 8 08/25 23:25 Drug: Doxycycline 100 mg Route: PO; 8 08/26 00:31 Follow up: Response: No adverse reaction 8 Point of Care Testing: Urine : 08/25 21:40 hCG Reading: Negative; Control Reading: Positive; 8 Outcome: 23:04 Decision to Hospitalize by Provider. pm1 08/26 16:14 Admitted to Med/surg accompanied by tech, via wheelchair, room 407, with chart, Report vg1 called to RENETTA Salinas Condition: stable Instructed on the need for admit. 16:34 Patient left the ED. vg1 Signatures: Dispatcher [employer] Petra Benavides Patrick, MOVIE PRODUCER MOVIE PRODUCER pm1 Jeanne Caldwell, RN RN jl7 Allan Glover 4 Brittany Nieves RN RN vg1 Rolando Apodaca RN RN jm8 Corrections: (The following items were deleted from the chart) 08/25 19:25 19:14 Chief complaint: Patient states: Vaginal itching and discharge for about 2-3 vg1 days. Pt states pain level is 10/10. Pt states pain upon urination. vg1
--- NOTE | 2020-08-25 23:04 | EDPHYS ---
Physician Documentation [facility] Name: Zen Gabriel Age: 25 yrs Sex: Female : 1995 Arrival Date: 08/25/2020 Time: 19:09 Bed 14 Private MD: Van Romeo ED Physician Rayray Washburn HPI: 08/25 20:29 This 25 yrs old Female presents to ER via Wheelchair with complaints of pm1 Fever, Vaginal Itching, Vaginal Pain. 20:29 The patient presents with urinary symptoms, vaginal discharge. Onset: The pm1 symptoms/episode began/occurred 3 day(s) ago. Modifying factors: The symptoms are alleviated by nothing, the symptoms are aggravated by urinating. Associated signs and symptoms: Pertinent positives: fever, Abdominal pain, Pertinent negatives: diarrhea, nausea, vomiting. Severity of symptoms: in the emergency department the symptoms are actually worse. The patient is sexually active, reportedly has a single partner. The patient's method of control includes nothing. condom. The patient has not experienced similar symptoms in the past. The patient has not recently seen a physician. 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 - Social history:: Smoking status: Patient denies any tobacco usage or history of. ROS: 20:29 Positive for pelvic pain, burning with urination, vaginal discharge, vaginal itching.pm1 20:29 Eyes: Negative for injury, pain, redness, and discharge, ENT: Negative for injury, pain, and discharge, Cardiovascular: Negative for chest pain, palpitations, and edema, Respiratory: Negative for shortness of breath, cough, wheezing, and pleuritic chest pain. 20:29 Back: Negative for injury and pain, MS/Extremity: Negative for injury and deformity, Skin: Negative for injury, rash, and discoloration. 20:29 Neuro: Negative for headache, weakness, numbness, tingling, and seizure. 20:29 Constitutional: Positive for fever. 20:29 Abdomen/GI: Positive for abdominal pain, of the suprapubic area, Negative for nausea, vomiting, and diarrhea. Exam: 20:29 Constitutional: This is a well developed, well nourished patient who is awake, alert, pm1 and in no acute distress. Head/Face: Normocephalic, atraumatic. 20:29 Back: No spinal tenderness. No costovertebral tenderness. Full range of motion. Skin: Warm, dry with normal turgor. Normal color with no rashes, no lesions, and no evidence of cellulitis. MS/ Extremity: Pulses equal, no cyanosis. Neurovascular intact. Full, normal range of motion. 20:29 Eyes: Exam is negative for Extraocular movements: intact throughout, Conjunctiva: normal. 20:29 ENT: Mouth: Lips: normal, Oral mucosa: normal, pink and intact, moist. 20:29 Cardiovascular: Rate: tachycardic, Rhythm: regular, Pulses: no pulse deficits are appreciated, Edema: is not appreciated. 20:29 Respiratory: Exam negative for acute changes, respiratory distress, shortness of breath. 20:29 Neuro: Orientation: is normal, Mentation: is normal, Motor: is normal, moves all fours. 22:36 : Pelvic Exam: External exam: red irritated bilateral labia majora, no lesions, no pm1 ulcerations, no warts seen, Speculum exam: no bleeding is noted, cervicitis present, bimanual exam reveals Unable to palpate cervix or ovaries with exam because the patient could not tolerate fingers at the introitus of vagina, Jing JACKSON and Bill JACKSON as rheumatology specialist. Sexual behavior: the patient is sexually active, and reports a single partner, method of control is condoms. Vital Signs: 19:14 BP 126 / 77; Pulse 120; Resp 18; Temp 102.8(O); Pulse Ox 98% on R/A; Weight 52.16 kg; vg1 Height 5 ft. 1 in. (154.94 cm); Pain 10/10; 22:29 BP 114 / 66; Pulse 101; Resp 16; Temp 98.7(O); Pulse Ox 97% on R/A; jm8 08/26 00:30 BP 107 / 66; Pulse 77; Resp 16; Pulse Ox 98% on R/A; jm8 08/25 19:14 Body Mass Index 21.73 (52.16 kg, 154.94 cm) vg1 MDM: 08/25 20:29 Patient medically screened. pm1 22:59 Data reviewed: vital signs. Data interpreted: Pulse oximetry: on room air is 97 %. pm1 Interpretation: normal. Counseling: I had a detailed discussion with the patient and/or guardian regarding: the historical points, exam findings, and any diagnostic results supporting the discharge/admit diagnosis, lab results, radiology results, the need for further work-up and treatment in the hospital. 08/25 20:29 Order name: Basic Metabolic Panel; Complete Time: 22:15 pm1 08/25 20:29 Order name: CBC with Diff; Complete Time: 22:15 pm 08/25 20:29 Order name: Hepatic Function; Complete Time: 22:15 pm 08/25 20:29 Order name: Lipase; Complete Time: 22:15 pm 08/25 20:29 Order name: Urine Microscopic Only; Complete Time: 22:15 [facility] 08/25 20:29 Order name: Wet Prep; Complete Time: 23:06 pm 08/25 20:29 Order name: GC (GONORR/CHLAMYDIA) Probe 08/25 20:40 Order name: Urine Dipstick-Ancillary; Complete Time: 20:47 [facility]OR 08/25 21:02 Order name: Urine Culture [facility] 08/25 21:24 Order name: Urine --Ancillary (enter results) [facility] 08/25 21:25 Order name: Urine --Ancillary; Complete Time: 22:15 [facility] 08/25 22:03 Order name: SARS-COV-2 RT PCR; Complete Time: 22:15 [facility] 08/25 23:06 Order name: Blood Culture Adult (2) [facility] 08/25 20:29 Order name: CT Abd/Pelvis - IV Contrast Only 08/25 20:29 Order name: IV Saline Lock; Complete Time: 20:41 pm 08/25 20:29 Order name: Labs collected and sent; Complete Time: 20:41 pm 08/25 20:29 Order name: Urine Dipstick-Ancillary (obtain specimen); Complete Time: 20:41 pm 08/25 20:29 Order name: Urine Test (obtain specimen); Complete Time: 20:40 pm 08/25 20:29 Order name: Pelvic Exam Setup; Complete Time: 22:15 pm1 08/26 00:23 Order name: CONS Physician Consult [facility] 08/26 06:13 Order name: CBC with Automated Diff [facility] 08/26 06:25 Order name: Comprehensive Metabolic Panel [facility] Administered Medications: 19:24 Drug: Tylenol 1000 mg Route: PO; vg1 20:33 Follow up: Response: No adverse reaction [facility] 19:27 Drug: Zofran (Ondansetron) 4 mg Route: PO; 1 20:33 Follow up: Response: No adverse reaction 8 20:42 Drug: NS 0.9% 1000 ml Route: IV; Rate: 1000 ml; Site: right forearm; jm8 22:09 Drug: morphine 4 mg Route: IVP; Site: right forearm; jm8 23:25 Follow up: Response: No adverse reaction; Pain is decreased 8 22:09 Drug: Zofran (Ondansetron) 4 mg Route: IVP; Site: right forearm; jm8 23:25 Follow up: Response: No adverse reaction [facility] 23:24 Drug: cefOXitin 2 grams Route: IVPB; Infused Over: 30 mins; Site: right forearm; 8 08/26 00:02 Follow up: IV Status: Completed infusion 8 00:32 Follow up: Response: No adverse reaction [facility] 08/25 23:25 Drug: Doxycycline 100 mg Route: PO; 8 08/26 00:31 Follow up: Response: No adverse reaction 8 Point of Care Testing: Urine : 08/25 21:40 hCG Reading: Negative; Control Reading: Positive; jm8 Disposition: 08/25/20 23:04 Hospitalization ordered by Rolando Adames for Inpatient Admission. Preliminary diagnosis are Pyelonephrtitis, Female pelvic inflammatory disease, unspecified. - Bed requested for Telemetry/MedSurg (Inpatient). - Status is Inpatient Admission. vg1 - Condition is Stable. - Problem is new. - Symptoms have improved. Signatures: Dispatcher [employer] [facility] Katerin Nieves, RN Sharath Garnett, CRISS SLIP MIXER pm1 Yvan Juan RN RN ja1 Brittany Nieves RN RN vg1 Rolando Apodaca RN RN jm8 Corrections: (The following items were deleted from the chart) 21:12 20:29 CORONAVIRUS+MR.LAB.BRZ ordered. EDOR EDMS 23:30 23:04 Hospitalization Ordered by Humberto BELLE for Inpatient Admission. Preliminary pm1 diagnosis is Pyelonephrtitis; Female pelvic inflammatory disease, unspecified. Bed requested for Telemetry/MedSurg (Inpatient). Status is Inpatient Admission. Condition is Stable. Problem is new. Symptoms have improved. pm1 06/ 00:46 05/31 23:30 08/25/2020 23:04 Hospitalization Ordered by Rolando Adames for Inpatient cg Admission. Preliminary diagnosis is Pyelonephrtitis; Female pelvic inflammatory disease, unspecified. Bed requested for Telemetry/MedSurg (Inpatient). Status is Inpatient Admission. Condition is Stable. Problem is new. Symptoms have improved. pm1 06/ 15:20 00:46 08/25/2020 23:04 Hospitalization Ordered by Rolando Adames for Inpatient ja1 Admission. Preliminary diagnosis is Pyelonephrtitis; Female pelvic inflammatory disease, unspecified. Bed requested for [facility]. Status is Inpatient Admission. Condition is Stable. Problem is new. Symptoms have improved. cg 16:34 15:20 08/25/2020 23:04 Hospitalization Ordered by Rolando Adames for Inpatient vg1 Admission. Preliminary diagnosis is Pyelonephrtitis; Female pelvic inflammatory disease, unspecified. Bed requested for Telemetry/MedSurg (Inpatient). Status is Inpatient Admission. Condition is Stable. Problem is new. Symptoms have improved. [facility]
[2020-08-25] MEDS ORDERED: CEFOXITIN SODIUM 1 GM/VIAL ONE (23:25)
[2020-08-25] MEDS ORDERED: DOXYCYCLINE 100 MG CAP PO ONE (23:25)
[2020-08-25] MEDS ORDERED: NA CHLORIDE 0.9% 100 ML ONE (23:25)
--- NOTE | 2020-08-26 00:47 | P.HP ---
Certification for Inpatient Patient admitted to: Inpatient With expected LOS: >2 Midnights Patient will require the following post-hospital care: None Practitioner: I am a practitioner with admitting privileges, knowledge of patient current condition, hospital course, and medical plan of care. Services: Services provided to patient in accordance with Admission requirements found in Title 42 Section 412.3 of the Code of Federal Regulations Patient History Date of Service: 08/26/20 Primary Care Provider: Agueda Reason for admission: PID, pyelonephritis History of Present Illness: Ms. Gabriel is a 25 yo F with asthma, endometriosis, and ovarian cyst here today with 2 days of 10/10 constant vaginal pain with accompaning yellow discharge, hematuria, dysuria, frequency, and urgency. She reports fever, nausea, and vomiting. Pain in all positions, unable to keep food down, constipated due to the pain. Some relief of pain with morphine. She is sexually active with 1 partner and uses condoms most of the time. She says she was tested for STDs Tuesday and results were negative. Her last period was 08/04, periods are irregular. She uses Nexplanon. Plt 139. Urine with 1+ glucose, trace blood, +leukocyte esterase, 20-50 RBCs, 20-50 WBCs, trace protein. CT scan suspicious for pyelonephritis. Allergies meperidine HCl [From Demerol] Allergy (Intermediate, Verified 11/25/11 19:27) vomiting, rash codeine [Codeine] Adverse Reaction (Intermediate, Verified 11/25/11 19:27) vomiting - Past Medical/Surgical History Has patient received pneumonia vaccine in the past: No Diabetic: No -: endometriosis -: ovarian cyst -: asthma -: oral surgeries - Family History Father -: Heart disease Notes: from undiagnosed heart condition Mother -: Cancer Notes: uterine cancer - Social History Smoking Status: Never smoker Alcohol use: Yes CD- Drugs: No Caffeine use: Yes Place of Residence: Home Review of Systems General: Fever, Chills, Sweats, As per HPI Eyes: Unremarkable ENT: Unremarkable Respiratory: Unremarkable Cardiovascular: Unremarkable Gastrointestinal: Nausea, Vomiting, Abdominal Pain, Constipation, As per HPI Genitourinary: Dysuria, Frequency, Urgency, Hematuria, As per HPI Musculoskeletal: Unremarkable Integumentary: Unremarkable Neurological: Unremarkable Lymphatics: Unremarkable Physical Examination - Physical Exam General: Alert, In no apparent distress, Oriented x3, Cooperative HEENT: Atraumatic, Normocephalic, PERRLA, Mucous membr. moist/pink, EOMI, Scle myah nonicteric Neck: Supple, 2+ carotid pulse no bruit, JVD not distended, No Thyromegaly, No LAD Respiratory: Clear to auscultation bilaterally, Normal air movement Cardiovascular: No edema, Normal pulses, Regular rate/rhythm, Normal S1 S2, No gallops, No rubs, No murmurs Capillary refill: <2 Seconds Gastrointestinal: Normal bowel sounds, Soft and benign, Non-distended, No ascites, No masses, No rebound, No guarding, Tenderness Musculoskeletal: No clubbing, No swelling, No contractures, No erythema, No tenderness, No warmth Integumentary: No rashes, No breakdown, No significant lesion, No warmth, No cyanosis, Tenderness/swelling, Erythema Neurological: Normal gait, Normal speech, Normal strength at 5/5 x4 extr, Normal tone, Sensation intact, Cranial nerves 3-12 intact, Normal affect Lymphatics: No axilla or inguinal lymphadenopathy External genitalia: Tenderness, Other (erythema, edema, strawberry cervix, cervical motion tenderness ) - Studies Laboratory Data (last 24 hrs) 08/25/20 20:44: WBC 4.70, Hgb 12.0, Hct 36.2, Plt Count 139 L 08/25/20 20:44: Sodium 137, Potassium 3.9, BUN 8, Creatinine 0.72, Glucose 110 H, Total Bilirubin 0.3, AST 38 H, ALT 45, Alkaline Phosphatase 65, Lipase 156 Microbiology Data (last 24 hrs): 08/25/20 22:11 Cervical Wet Prep - Final Assessment and Plan - Problems (Diagnosis) (1) Endometriosis Current Visit: Yes Status: Chronic (2) History of ovarian cyst Current Visit: Yes Status: Chronic (3) Pyelonephritis Current Visit: Yes Status: Acute (4) PID (acute pelvic inflammatory disease) Current Visit: Yes Status: Acute - Plan SEWING PATTERN LAYOUT TECHNICIAN consulted continue IV cefoxitin and PO doxycycline gonorrhea, chlamydia, and HIV test pending continue IVF, pain management, antiemetics tylenol to control fever urine culture, blood culture pending Discharge Plan: Home Plan to discharge in: 48 Hours - Advance Directives Does patient have a Living Will: No Does patient have a Durable POA for Healthcare: No - Code Status/Comfort Care Code Status Assessed: Yes (full code) Critical Care: No Time Spent Managing Pts Care (In Minutes): 70
[2020-08-26] MEDS ORDERED: ZOLPIDEM TARTRATE 5 MG TABLET PO PRN (01:42)
[2020-08-26] MEDS: NA CHLORIDE 0.9% 1,000 ML IV SCH ×3 (01:42→20:07)
[2020-08-26] MEDS: ONDANSETRON 4 MG/2 ML VIAL IV PRN ×2 (01:54→09:10)
[2020-08-26] MEDS: MORPHINE 4 MG/ML SYR IV PRN ×4 (01:54→22:11)
[2020-08-26] MEDS ORDERED: ONDANSETRON 4 MG/2 ML VIAL ONE ×2 (02:13→09:07)
[2020-08-26] MEDS ORDERED: MORPHINE 4 MG/ML SYR ONE ×2 (02:13→09:02)
[2020-08-26 02:27] VITALS: BMI 21.7
[2020-08-26] MEDS: LORATADINE 10 MG TAB PO PRN ×2 (03:13→20:07)
[2020-08-26] MEDS ORDERED: LORATADINE 10 MG TAB ONE (03:20)
[2020-08-26] MEDS ORDERED: CEFOXITIN 2 GM in NA CHLORIDE 0.9% 100 ML IVPB SCH (06:00)
[2020-08-26] MEDS ORDERED: CEFOXITIN/SWI 1gm 1 GM/10 ML SYR IVP ONE ×2 (06:00)
[2020-08-26 06:11] LABS: Absolute Lymphocytes (CBC) 0.9 K/uL (0.7-4.9); Basophils % 0.3 % (0-1.3); Hematocrit 37.3 % (36.0-45.0); Lymphocytes % 19.1 % (15.3-44.8); MPV 8.9 fL (7.6-11.3); RBC Red Blood Cell Count 4.26 M/uL (3.86-4.86)
[2020-08-26 06:25] LABS: Albumin 3.9 g/dL (3.4-5.0); Bilirubin Total 0.3 mg/dL (0.2-1.0); Potassium 3.5 mmol/L (3.5-5.1); Protein, Total 7.6 g/dL (6.4-8.2)
[2020-08-26] MEDS ORDERED: CEFOXITIN SODIUM 1 GM/VIAL ONE (06:27)
[2020-08-26] MEDS ORDERED: CEFOXITIN/SWI 1gm 1 GM/10 ML SYR ONE (06:28)
[2020-08-26] MEDS: DOXYCYCLINE 100 MG CAP PO SCH ×2 (09:00→20:07)
[2020-08-26] MEDS: GUAIFENESIN 600 MG SA TAB PO SCH ×2 (09:00→20:07)
[2020-08-26] MEDS: ENOXAPARIN 40 MG/0.4 ML SQ SCH (09:00)
[2020-08-26] MEDS ORDERED: ENOXAPARIN 40 MG/0.4 ML SQ ONE (09:01)
[2020-08-26] MEDS ORDERED: DOXYCYCLINE 100 MG CAP PO ONE (09:01)
[2020-08-26] MEDS ORDERED: ACETAMINOPHEN 500 MG TAB ONE (10:05)
[2020-08-26] MEDS ORDERED: PROMETHAZINE INJ 25 MG/ML AMP ONE (10:09)
[2020-08-26] MEDS: ACETAMINOPHEN 500 MG TAB PO PRN ×2 (10:28→23:07)
--- NOTE | 2020-08-26 11:09 | RAD REPORT ---
EXAM DESCRIPTION: CT - Abdomen Pelvis W Contrast - 08/26/2020 6:39 am CLINICAL HISTORY: Suprapubic pain, dysuria, vaginal discharge. COMPARISON: CT of the abdomen and pelvis from April 17, 2020. TECHNIQUE: CT of the abdomen and pelvis was performed following intravenous administration of iodina jordan contrast. Arterial phase images through the abdomen, and portal venous phase images through the a bdomen and pelvis were obtained. Oral contrast was not administered. Axial, coronal, and sagittal sof t tissue window reconstructions were created and sent to PACS. This exam was performed according to our departmental dose-optimization program, which includes autom ated exposure control, adjustment of the mA and/or kV according to patient size and/or use of iterati ve reconstruction technique. FINDINGS: Thoracic: No significant abnormality. Hepatobiliary: No concerning hepatic lesion identified. The hepatic and portal veins are patent. Chay sly unremarkable appearance of the contracted gallbladder. No biliary ductal dilatation. Pancreas: Unremarkable. Spleen: Unremarkable. Gastrointestinal: No evidence of bowel obstruction or perienteric inflammation. The appendix is not d efinitely visualized, but there are no pericecal inflammatory changes. Small to moderate amount of fe harmony material throughout the colon. Adrenals: No abnormality identified in either adrenal gland. Renal: Faint geographic hypodense changes in the left renal cortex. Tiny rounded right renal hypodens ities, possibly cysts. No hydronephrosis or urolithiasis. Bladder/Reproductive: Unremarkable appearance of the urinary bladder by CT technique. Unremarkable CT appearance of the uterus and ovaries. Vascular/Lymphatics: No lymphadenopathy identified by CT size criteria. The major visceral vessels ar e patent. Abdominal aorta is normal in caliber. Musculoskeletal: No concerning osseous lesion identified. Fluid / peritoneum: No significant free fluid. No free intraperitoneal air identified. IMPRESSION: 1. Faint hypodense changes in the left renal cortex, suggestive of pyelonephritis. 2. No hydronephrosis bilaterally. Electronically signed by: Ute Garcia MD 08/25/2020 10:08 PM CDT Due to temporary technical issues with the PACS/Fluency reporting system, reports are being signed by the in house radiologists without review as a courtesy to insure prompt reporting. The interpreting radiologist is fully responsible for the content of the report.
[2020-08-26] MEDS: CEFOXITIN/SWI 2gm 2 GM/20 ML SYR IVP SCH ×3 (11:54→23:07)
[2020-08-26] MEDS ORDERED: NA CHLORIDE 0.9% 1,000 ML ONE (13:01)
[2020-08-26] MEDS ORDERED: BISACODYL E.C. 5 MG TAB PO PRN (14:51)
[2020-08-26] MEDS: PROMETHAZINE INJ 25 MG/ML AMP IV PRN (22:11)
[2020-08-26 22:42] LABS: Urine Appearance CLEAR (Clear); Urine Bilirubin NEGATIVE (Negative); Urine Blood NEGATIVE (Negative); Urine Color YELLOW (Yellow); Urine Glucose NEGATIVE (Negative); Urine Protein NEGATIVE (Negative); Urine Urobilinogen 0.2 mg/dL (0.2-1.0)
[2020-08-26 22:45] LABS: Urine Microscopic Reflex NO UMIC
[2020-08-27] MEDS: PROMETHAZINE INJ 25 MG/ML AMP IV PRN ×2 (05:06→13:06)
[2020-08-27] MEDS: CEFOXITIN/SWI 2gm 2 GM/20 ML SYR IVP SCH ×4 (05:06→23:44)
[2020-08-27] MEDS: MORPHINE 4 MG/ML SYR IV PRN ×2 (05:07→13:06)
[2020-08-27 05:58] LABS: Absolute Lymphocytes (CBC) 0.7 K/uL (0.7-4.9); Basophils % 0.3 % (0-1.3); Hematocrit 31.9 % (36.0-45.0); Lymphocytes % 22.5 % (15.3-44.8); MPV 9.1 fL (7.6-11.3); RBC Red Blood Cell Count 3.69 M/uL (3.86-4.86)
[2020-08-27 06:07] LABS: ALT/SGPT 86 U/L (12-78); AST/SGOT 78 U/L (15-37); Albumin 3.1 g/dL (3.4-5.0); Alkaline Phosphatase 48 U/L (45-117); BUN Blood Urea Nitrogen 4 mg/dL (7-18); Bicarbonate 26 mmol/L (21-32); Bilirubin Total 0.3 mg/dL (0.2-1.0); Glucose Level 83 mg/dL (74-106); Magnesium 1.8 mg/dL (1.8-2.4); Phosphorus 2.4 mg/dL (2.5-4.9); Protein, Total 6.1 g/dL (6.4-8.2); Sodium Level 138 mmol/L (136-145)
[2020-08-27] MEDS: NA CHLORIDE 0.9% 1,000 ML IV SCH ×2 (06:19→13:53)
[2020-08-27] MEDS: FLUCONAZOLE 100 MG TAB PO SCH (07:28)
[2020-08-27] MEDS: DOXYCYCLINE 100 MG CAP PO SCH ×2 (07:29→22:32)
[2020-08-27] MEDS: GUAIFENESIN 600 MG SA TAB PO SCH ×2 (07:29→22:32)
[2020-08-27] MEDS: ENOXAPARIN 40 MG/0.4 ML SQ SCH (07:29)
[2020-08-27] MEDS ORDERED: MORPHINE 2 MG/ML SYR IV PRN (16:19)
[2020-08-27] MEDS: ACETAMINOPHEN 500 MG TAB PO PRN ×2 (17:13→23:40)
--- NOTE | 2020-08-27 20:23 | PN ---
Date of Progress Note: 08/27/2020 The patient has now become afebrile. Culture is questionable for contamination by the cliff gross. She states since the catheter is in, she is obviously much more comfortable. We will cut down on the morphine as she has less discomfort, although she still complains of lower abdominal pain and no back pain. She is now afebrile. Her white count has dropped compatible with a viral infection. Probability of being her herpetic problem is likely as well as the possible bacteria, UTI with mild pyelonephritis. We will consult Gynecology and if cultures are negative for bacteria, she possibly c ould be discharged tomorrow on antiviral medication and oral antibiotic. HR/MODL Voice ID: [id number] Report ID: [id number]
[2020-08-27] MEDS: ACYCLOVIR 400 MG TABLET PO SCH (22:32)
[2020-08-27] MEDS: LORATADINE 10 MG TAB PO PRN (22:38)
[2020-08-28 05:46] LABS: Absolute Lymphocytes (CBC) 0.8 K/uL (0.7-4.9); Basophils % 0.4 % (0-1.3); Hematocrit 33.4 % (36.0-45.0); Lymphocytes % 39.8 % (15.3-44.8); MPV 8.9 fL (7.6-11.3); RBC Red Blood Cell Count 3.86 M/uL (3.86-4.86)
[2020-08-28] MEDS: PROMETHAZINE INJ 25 MG/ML AMP IV PRN ×2 (05:49→18:20)
[2020-08-28] MEDS: CEFOXITIN/SWI 2gm 2 GM/20 ML SYR IVP SCH ×2 (06:02→12:38)
[2020-08-28 06:03] LABS: Potassium 3.6 mmol/L (3.5-5.1)
[2020-08-28 06:40] LABS: Phosphorus 4.3 mg/dL (2.5-4.9)
[2020-08-28 07:32] VITALS: O2SAT 98
[2020-08-28] MEDS: ACETAMINOPHEN 500 MG TAB PO PRN (07:34)
[2020-08-28] MEDS: DOXYCYCLINE 100 MG CAP PO SCH (07:35)
[2020-08-28] MEDS: ENOXAPARIN 40 MG/0.4 ML SQ SCH (07:36)
[2020-08-28] MEDS: ACYCLOVIR 400 MG TABLET PO SCH ×4 (07:36→20:56)
[2020-08-28] MEDS: FLUCONAZOLE 100 MG TAB PO SCH (07:36)
[2020-08-28] MEDS: GUAIFENESIN 600 MG SA TAB PO SCH ×2 (07:37→20:56)
[2020-08-28] MEDS ORDERED: POTASSIUM CL SA 10 MEQ TAB PO ONE (09:00)
[2020-08-28 10:00] LABS: C.trachomatis RNA,TMA Not Detected (Not Detected)
[2020-08-28] MEDS ORDERED: NA CHLORIDE 0.9% 1,000 ML IV SCH (11:00)
[2020-08-28 11:04] LABS: Blood Morphology Comment NOT SEEN (NOT SEEN); Platelet Estimate ADEQ
--- NOTE | 2020-08-28 11:22 | RAD REPORT ---
EXAM DESCRIPTION: US - Pelvis Complete - 08/28/2020 10:56 am CLINICAL HISTORY: Pelvic pain COMPARISON: August 25, 2020 cat scan FINDINGS: Examination is limited as a Mendez catheter is present within a collapsed bladder. The viridiana ent could not tolerate an endovaginal sonogram. Uterus measures 8 x 4 x 4 centimeters. Endometrial stripe is not well visualized but does not appear thickened. No gross uterine fibroid seen. The right ovary is normal in size and echotexture. 3 centimeter complex left ovarian cyst. The right and left adnexum unremarkable No significant free fluid IMPRESSION: 3 centimeter complex left ovarian cyst likely benign. Follow up ultrasound in a couple m onths recommended to assess stability/resolution
[2020-08-28] MEDS ORDERED: BISACODYL E.C. 5 MG TAB PO ONE (13:06)
[2020-08-28 14:18] LABS: HIV AG/AB 4TH GEN Non-reactive (Non-reactive)
--- NOTE | 2020-08-28 17:02 | CON ---
Zen Lane is a 25-year-old female, admitted through the emergency room with presumptive diagnos is of pyelonephritis. During her stay, she has had lesions come up on the labia and posterior fourch ette. I was asked to see the patient in consultation with Dr. Romeo. The patient states that abou t 24-48 hours prior to experiencing pain in her genital area, she had intercourse. Thereafter, she b ecame extremely uncomfortable, had severe dysuria which in fact requires catheterization. She has al so had a fever. Her white count is actually lower than normal. She has been placed on antibiotics a nd now antiviral medications. Today's exam is limited to the pelvis and vagina. The patient obvious ly has severe herpes. Culture was taken. It is extremely painful to even take a culture, which I ho pe is adequate, but whether the culture comes back positive or not, the patient has severe genital he rpes. This was discussed. Discussed it with Dr. Romeo as well. I suggested she be placed on acyc lovir 400 mg 3 times a day for at least 2 weeks and give an adequate supply so she has outbreaks in t he future. She can have medicines available to immediately take to shorten the episode. I also sugg ested that she be checked or treated for other possible sexually transmitted diseases that she could have acquired same time. She is on high-dose antibiotics. I think that should take care of anything such as Gonorrhea or Chlamydia, but diagnosis at this point is obvious severe genital herpes. Treat ment is underway. NAHED/PHUC Voice ID: [id number] Report ID: [id number]
[2020-08-28] MEDS: CODEINE 30MG/APAP 300MG TAB PO PRN (18:20)
--- NOTE | 2020-08-28 18:42 | PN ---
Date of Progress Note: 08/28/2020 The patient actually does feel somewhat better today. She states she has had a temperature overnight , was difficult to document as such. She remains afebrile today. She had episodes of vomiting, whic h she said are uncommon and she has not had a bowel movement for a couple of days. We will treat sym ptomatically. She was seen by [facility]. Physical exam herpes vaginally, so we treated her acc ordingly. Another issue is her white blood count was dropped down to 2000. This will be repeated in a.m. and assuming it is normal, she can be discharged on the medication. Suspect contamination as f ar as the . The patient does not appear toxic. Still has some discomfort on deep palpatio n on the left and right lower quadrant, left more so than the right, compatible with the ovarian cyst seen on the ultrasound. The patient states she has had recurrent episodes of this and in fact cyst. Her intake has been somewhat decreased; however, I feel it is probably related to the co nstipation. She is encouraged to mobilize. Pain Management has decreased the . HR/MODL Voice ID: [id number] Report ID: [id number]
[2020-08-28] MEDS: LORATADINE 10 MG TAB PO PRN (20:56)
[2020-08-29] MEDS: PROMETHAZINE INJ 25 MG/ML AMP IV PRN ×2 (03:57→11:32)
[2020-08-29] MEDS: FLUCONAZOLE 100 MG TAB PO SCH (07:26)
[2020-08-29] MEDS: ENOXAPARIN 40 MG/0.4 ML SQ SCH (07:27)
[2020-08-29] MEDS: ACYCLOVIR 400 MG TABLET PO SCH (07:27)
[2020-08-29] MEDS: GUAIFENESIN 600 MG SA TAB PO SCH (07:27)
[2020-08-29] MEDS ORDERED: CEFDINIR 300 MG CAP PO SCH (09:00)
[2020-08-29 09:02] LABS: Absolute Lymphocytes (CBC) 1.7 K/uL (0.7-4.9); Basophils % 0.5 % (0-1.3); Hematocrit 39.6 % (36.0-45.0); Lymphocytes % 54.7 % (15.3-44.8); MPV 8.4 fL (7.6-11.3); RBC Red Blood Cell Count 4.62 M/uL (3.86-4.86)
[2020-08-29 09:17] LABS: Potassium 3.5 mmol/L (3.5-5.1)
[2020-08-29] MEDS ORDERED: PARoxetine HCL 10 MG TAB PO SCH (10:00)
[2020-08-29 10:59] LABS: Blood Morphology Comment NOT SEEN (NOT SEEN); Platelet Estimate DECR
[2020-08-29] MEDS: CODEINE 30MG/APAP 300MG TAB PO PRN (11:11)
[2020-08-29] MEDS ORDERED: ACYCLOVIR 400 MG TABLET PO SCH (13:00)
[2020-08-29 13:10] VITALS: BP 126/82; TEMP 97.6
== END 2020-08-29 16:00 | disposition home or self-care (01) | DRG 690 ==
LOC: ER 19:07 → ERHOLD 08-26 00:22 → 4TH 08-26 16:14
PROVIDERS: ADMIT Internal Medicine; ATTEND Family Medicine
DX: N10 Acute pyelonephritis (principal); A60.00 Herpesviral infection of urogenital system, unspecified; N80.9 Endometriosis, unspecified; B34.9 Viral infection, unspecified; N83.202 Unspecified ovarian cyst, left side; Z20.822 Contact with and (suspected) exposure to COVID-19
CPT/HCPCS: 36415; 74177; 76856; 80048; 80053; 80076; 81003; 81015; 81025; 83690; 83735; 84100; 85025; 87040; 87070; 87075; 87077; 87086; 87088; 87186; 87205; 87210; 87389; 87490; 87590; 96365; 96375; 99285; J0694; J1650; J2270; J2405; J2550; J7030; Q9967; U0003